=== PATIENT | male | born 1960 | race Caucasian/White ===

== ENCOUNTER 2022-02-13 00:23 | Outpatient (CLI) | payer BC, SELFPAY ==
--- NOTE | 2022-02-13 13:39 | ST.MBS_ITS ---
Date of Service Date of service: 02/13/22 Time of Service: 14:30 Modified Barium Swallow Study Findings: Videofluoroscopic Swallowing Evaluation (VFSE) / Modified Barium Swallow Study (MBSS) Speech Language Pathology Report HPI: Patient is a 61 year old male referred for VFSE/MBSS from Dr. 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 PMHx: Please see chart for full medical history. Previous Imaging: N/A SUBJECTIVE: Patient reports increased pain as RT has continued, in overall good spirits; patient reports he feels residue primarily in oral cavity after swallow onset, lacks pharyngeal sensation with presence of residue. IMPRESSIONS: Swallow safety is mildly impaired; swallow efficiency is impaired. Mild-moderate oropharyngeal dysphagia, mainly characterized by delayed pharyngeal onset timing (triggered at pyriform sinus), resulting in deep penetration prior to swallow onset during intake of mixed consistency bolus (solid pill+thin liquids); additional pharyngeal deficits as outlined below resulting in RIGHT sided vallecular residue- residue is lessened with more viscous liquid or solid bolus; recommend use of pureed texture with tablets/pills to reduce this risk during BUSINESS TEST ANALYST. Small hypertrophy noted along anterior cervical esophagus during swallow at level of C4; this does not appear to impede bolus flow. Patient appears to be at low-moderate risk for potential aspiration PNA and/or pulmonary compromise and low-moderate risk for malnutrition, low- moderate risk for dehydration. Diet modification is indicated; prophylactic non-oral nutrition is indicated only per patient preference in context of BUSINESS TEST ANALYST plan. Swallow prognosis is good-fair given age (+), likely post-radiation changes in context of L parotid ademona, BOT cancer with current radiotherapy treatment plan (-) and pending patient/caregiver training in risk management as outlined, including use of trialed compensatory strategies as outlined above. Patient appears to be a good candidate for behavioral swallow rehabilitation. Specialist referrals: N/A Ancillary tests: N/A Diet texture recommendation: IDDSI Level 6-Soft & Bite-Sized Solids 0-Thin Liquids Please see further details at www.iddsi.org Diet texture modification is per patient's preference; please adjust diet textures at patient's discretion & collaboration with care team. Risk Management: Throat clear + reswallow Head turn to Right side if unable to sense residue moving forward Oral medications (tablet/pills etc) in pureed texture as appropriate Alternate solids/liquids as able; Small sips/bites Multiple swallows per bolus to encourage clearance of pharyngeal stasis/residue Behavioral reflux precautions, including upright position during + 90 mins after meals. Control risk factors for aspiration pneumonia via (a) thorough oral hygiene & (b) maintaining physical mobility as tolerated PLAN: Therapy: Recommend subsequent outpatient session with PORTRAIT PHOTOGRAPHER to review results of today's exam and develop treatment plan as appropriate. Patient has scheduled appointment planned for 02/20 with PORTRAIT PHOTOGRAPHER at [facility]. Goal: TBD pending patient/caregiver interview Follow-up exam: N/A Thank you for allowing me to take part in this patient's care. Please feel free to contact me with any questions/concerns. Luzma Crane MA [facility]-PORTRAIT PHOTOGRAPHER Speech Language Pathologist [phone] OBJECTIVE: Videofluoroscopic Swallow Evaluation (VFSE/MBSS) was conducted in the lateral and [id number] projections by Speech-Language Pathologist, in collaboration with Radiologist, to evaluate oropharyngeal swallow function. Anatomic view under fluoroscopy: WFL PO Barium Contrast Trials Oral barium water-soluble contrast was administered as follows: IDDSI Level 0 Varibar thin liquid (40% w/v) IDDSI Level 2 Varibar nectar thick/mildly thick liquid (40% w/v) IDDSI Level 3 Varibar thin honey/liquidised/moderately-thick (40% w/v) IDDSI Level 4 Varibar pudding/pureed/extremely thick (40% w/v) IDDSI Level 7 Regular Solid: 1/2 jonas cracker coated in 3 mL Varibar pudding; 13 mm barium tablet PHYSIOLOGIC FINDINGS (1) Above: Deep penetration prior to swallow onset during mixed consistency bolus (solid pill+thin liquids) Below: RIGHT sided vallecular residue with IDDSI 2 mildly thickened liquids (residue is lessened with more viscous liquid or solid bolus) Oral Impairment 1 Lip Closure [0-No labial escape] 2 Tongue Control [1- Escape to lateral buccal cavity/floor of mouth ] 3 Bolus Preparation/Mastication [1- Slowed/prolonged chewing/mashing with complete recollection] 4 Bolus Transport/Lingual Motion [1- Delayed initiation of tongue motion] 5 Oral residue [1- Trace residue lining oral structures] Location palate, tongue 6 Initiation of pharyngeal swallow 2- Bolus head at posterior laryngeal surface of epiglottis *3- Bolus head in pyriform sinus Increased risk of penetration/aspiration prior to swallow onset with mixed consistency (ie solid tablet + thin liquids) Pharyngeal Impairment 7 Velar Elevation 0- No bolus between soft palate and pharyngeal wall 8 Laryngeal Elevation [1- Partial superior movement of thyroid cartilage with partial approximation of arytenoids to epiglottic petiole] 9 Anterior Hyoid Excursion [1- Partial anterior movement] 10 Epiglottic Movement [0- Complete inversion] 11 Laryngeal Vestibule [1- Incomplete; narrow column of air/contrast in laryngeal vestibule] Penetration occurs prior to initial swallow onset from current bolus Deep penetration prior to swallow onset during mixed consistency bolus (solid pill+thin liquids) Aspiration not observed PAS / Overall 8-Point Penetration-Aspiration Scale (2) 4 - Material enters the airway, contacts the vocal folds and is ejected from the airway Clinical Indicator(s) of Prandial/Postprandial Aspiration N/A 12 Pharyngeal Stripping Wave [1- Present; diminished] 13 Pharyngeal Contraction [0- Complete] 14 PES/UES Opening [0- Complete distension and complete duration; no obstruction of flow] 15 Tongue Base Retraction [2- Narrow column of contrast between tongue base and posterior pharyngeal wall] 16 Pharyngeal residue [2- Collection of residue within or on pharyngeal struct ures ] Location Circle Pharyngeal Residue Severity Rating Scale(3) RIGHT sided vallecular residue- residue is lessened with more viscous liquid or solid bolus [Tongue base] mild [Valleculae] [I None 0% No residue II Trace 1-5% Trace coating III Mild 5-25% Epiglottic ligament visible IV Moderate 25-50% Epiglottic ligament covered V Severe >50% Filled to epiglottic rim] [Pharyngeal wall] trace [Pyriform sinuses] [I None 0% No residue II Trace 1-5% Trace coating III Mild 5-25% Up wall to quarter full IV Moderate 25-50% Up wall to half full V Severe >50% Filled to aryepiglottic fold] l Esophageal Impairment 17 Esophageal Clearance in Upright Position [0-Complete clearance; esophageal coating ] Notes This study was performed for interpretation only of the oropharyngeal and pharyngoesoph ageal domains of swallowing, and is not intended to diagnose any other radiologic abnormalities or substitute for a formal esophagram study. Small hypertrophy noted along anterior cervical esophagus during swallow at level of C4 DIGEST Scale Rating (4) Interaction of Assigned Safety and Efficiency Grades (0=No Impairment, 1=Mild, 2=Moderate, 3=Severe, 4=Life Threatening) Safety Grade S0 S1 S2 S3 S4 Efficiency Grade E0 0 1 2 3 3 E1 1 1 2 3 3 E2 1 2 2 3 3 E3 2 2 3 3 4 E4 3 3 3 4 4 Overall Moderate Pharyngeal Impairment - Above score(s) represent swallowing events without application of compensatory techniques - Breaking of MBSimP protocol for current study likely [under, over]-grades above safety impairment IGNA: (5) Severity LEVEL 5 - Full PO: modified diet and/or independence - Mild-moderate dysphagia Trialed Compensatory Strategies & Outcome: Maneuvers Successful/Unsuccessful (+/-) Postures Successful/Unsuccessful (+/-) 3 second Preparatory Set + Chin Tuck Posture Cough Posterior Head tilt Reflexive Cued Throat Clear Head Tilt to Reflexive Left Cued Right Saliva swallow + Head Turn/Rotation to Supraglottic Swallow Left Super-supraglottic Swallow Right + Head turn to Right side - successful in reducing overall amount of pharyngeal stasis Bolus Modifications Successful/Unsuccessful (+/-) Delivery/Alternating Consistencies + Delivery/Via Straw Reduced Volume + Reduced Rate of Intake N/A Increased Viscosity + reduces amount of vallecular residue Other: Coding CPT Codes MOTION FLUOROSCOPY/SWALLOW - [id number] ([id number]) 1: Jessica Fields et al. ?MBS measurement tool for swallow impairment--MBSImp: establishing a standard.? Dysphagia vol. 23,4 (2008): 392-405. doi:10.1007/w89723-576-9824-7 2: (Henna, et al, 1995) 3: (Estefanía et al, 2015) 4: (OMary, et al, 1999, Primo, et al. Cancer. 2017;123(1):62-70) The Dynamic Imaging Grade of Swallowing Toxicity (DIGEST) Score represents a set of structured criteria primarily validated for head and neck cancer patients to grade the interaction of safety, efficiency, and overall impairment of the pharyngeal swallow, meant to assist in prioritization of targets for dysphagia treatment planning. 5: The Dysphagia Outcome and Severity Scale is a 7-point scale developed to systematically rate the functional severity of dysphagia based on objective assessment and make recommendations for diet level, independence level, and type of nutrition.
--- NOTE | 2022-02-13 14:20 | DI.RAD_ITS ---
Exam(s) RF MODIFIED SPEECH BA SWALLOW TECHNIQUE: Modified barium swallow was performed in conjunction with speech pathology. CONTRAST MATERIAL: Oral barium Oral water soluble contrast was administered. COMPARISON: No exams were available for comparison FINDINGS: Fluoroscopy was provided during swallowing mechanism study performed our department in conjunction wi the speech therapist. Please see that separate report. This study did not reveal obvious aspiration. No Zenker's diverticulum. No holdup of swallowed radi opaque pill along the course of the esophagus. IMPRESSION: No evidence of aspiration. See separate speech therapist report RADIATION DOSE DELIVERED: glenda Slater=9.94 mGy
[2022-02-13] MEDS: Barium Sulfate 81% w/w for Oral Suspension 148 GM BTL 80 GM PO (14:58)
[2022-02-13] MEDS: Barium Sulfate 40% W/V 240 ML BTL 70 ML PO (14:58)
[2022-02-13] MEDS: Barium Sulfate Oral Paste 40% W/V 230 ML TUBE 13 ML PO (14:59)
[2022-02-13] MEDS: Barium Sulfate 40% W/V 1500 CPS 250 ML BTL PO (14:59)
[2022-02-13] MEDS: Barium Sulfate 700 MG TAB PO (15:00)
== END 2022-02-13 00:43 ==
LOC: DI 00:23
PROVIDERS: PCP Physician Assistant; Visit Provider Preventive Medicine Undersea and Hyperbaric Medicine
DX: C01 Malignant neoplasm of base of tongue (principal)
CPT/HCPCS: 92526; 92611; 74221

== ENCOUNTER 2023-02-26 01:09 | Outpatient (CLI) | payer BC, SELFPAY ==
--- NOTE | 2023-02-26 14:30 | ST.MBS ---
Date of Service Date of service: 02/26/23 Time of Service: 02:30 Modified Barium Swallow Study Findings: Video fluoroscopic Swallowing Evaluation (VFSE) / Modified Barium Swallow Study (MBSS) Speech Language Pathology Report Patient referred for VFSE/MBSS from EZ Calderon ([place]ology, [facility] given oral-pharyngeal dysphagia resulting from head/neck cancer and treatment. HPI & Patient report of function: Rinku Cervantes is a? 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 He underwent TORS resection with neck dissection and submental island flap and completed chemoradiation on 03/15/2022. Recently underwent repeat biopsy with debridement of R glossopharyngeal sulcus and right base of tongue due to renewed pain and inflammation - no recurrence found but some necrotic tissue was removed and patient was also found with thrush. He was followed by Luzma Crane at [facility] for dysphagia and trismus management around and after the time of his cancer treatment. Patient was seen for follow up with [facility] head/neck and found without evidence of recurrence at that time. He complains of some difficulty managing oral secretions and with intelligibility as well as continued dysphagia symptoms, therefore new HAND MOLD MAKER referral was placed for [facility]. After initial HAND MOLD MAKER assessment, MBSS was recommended to obtain updated LOF since he is now 1 year out from completing his cancer treatment. IMPRESSIONS: Swallow safety is impaired; swallow efficiency is impaired. Moderate chronic oropharyngeal dysphagia. Characterized by: - poor lingual control resulting in premature spillage and deep penetration of liquids during the swallow, poor mastication/bolus preparation, and reduced A/P transit resulting in oral residue - with liquids also leading to post-swallow posterior spillage - reduced tongue-base retraction resulting in poor hyperpharyngeal clearance - reduced hyo-laryngeal movement inconsistently resulting in reduced or absent epiglottic inversion or reduced UES distension also resulting in vallecular and pyriform residue. Patient appears to be at low risk for potential aspiration PNA and/or pulmonary compromise and low risk for malnutrition, dehydration. Diet modification is not indicated; non-oral nutrition is not indicated. Swallow prognosis is guarded given: Positive prognostic factors: Age, Motivation, Cognitive status, Negative prognostic factors: Severity, Relative dose of Chemotherapy and/or radiation treatment, Surgical/anatomical factors, and pending patient/caregiver training in risk management as outlined, including use of trialed compensatory strategies. Patient appears to be a good candidate for behavioral swallow rehabilitation. RECOMMENDATIONS: Diet Texture Recommendation:? IDDSI LEVEL SOLIDS 6-Soft & Bite-Sized Solids 5-Minced & Moist Solids LIQUIDS 0-Thin Liquids Please see further details at?[email or web address] MEDICATIONS Whole with 0-Thin Liquids or 4-Puree Diet texture modification is per patient's preference; please adjust diet textures at patient's discretion & collaboration with care team. Do not alter medications (e.g., cut)? without advice from your MD or pharmacist. Risk Management Strategies:? Behavioral reflux precautions, including upright position during + 90 mins after meals. Small bites, approx [id number] Small sips, approx 10 mL Alternate solids/liquids as able Multiple swallows per bolus to encourage clearance of pharyngeal stasis/residue Control risk factors for aspiration pneumonia via (a) thorough oral hygiene & (b) maintaining physical mobility as tolerated PLAN: Therapy: Recommend subsequent outpatient session with HAND MOLD MAKER to review results of today's exam and develop treatment plan as appropriate. May consider the following: Oropharyngeal Exercises to target deficits noted in objective section above, Further Compensatory Strategy Training Goals: TBD pending patient/caregiver interview Follow-up exam: PRN ----- OBJECTIVE Videofluoroscopic Swallow Evaluation (VFSE/MBSS) was conducted in the lateral[ and [id number]] projection by Speech-Language Pathologist, in collaboration with Radiologist, to evaluate oropharyngeal swallow function. Anatomic view under fluoroscopy: reduced tongue bulk PO Barium Contrast Trials Oral barium water-soluble contrast was administered as follows: IDDSI Level 0 Varibar thin liquid (40% w/v) IDDSI Level 2 Varibar nectar thick/mildly thick liquid (40% w/v) IDDSI Level 4 Varibar pudding/pureed/extremely thick (40% w/v) IDDSI Level 7 Regular Solid: 1/2 jonas cracker coated in 3 mL Varibar pudding 13 mm barium tablet taken with Thin Liquids. MBSImP Component Scores: COMPONENT Scale SCORE 1 Lip closure (0-4) 0 Resulted in no labial escape 2 Hold Position (0-3) 2 Resulted in posterior escape of less than half of the bolus 3 Bolus Preparation (0-4) 1 Resulted in slow prolonged chewing/mashing with complete re-collection 4 Bolus Transport (0-4) 4 Yielded only minimal to no tongue motion 5 Oral Residue (0-4) 3 Was the majority of bolus remaining 6 Swallow Initiation (0-4) 3 Occurred when the bolus head was in the pyriform sinuses 7 Soft Palate Elevation (0-4) 0 Resulted in no bolus between soft palate and the pharyngeal wall 8 Laryngeal Elevation (0-3) 1 Was decreased with partial superior movement of thyroid cartilage/partial approximation of arytenoids to epiglottic petiole 9 Anterior Hyoid Motion (0-2) 1 Demonstrated partial anterior movement 10 Epiglottic Movement (0-2) 1 Resulted in partial inversion 11 Laryngeal Closure (0-2) 1 Was incomplete with narrow a column of air/contrast in laryngeal vestibule 12 Pharyngeal Stripping Wave (0-2) 1 Was present, but diminished 13 Pharyngeal Contraction (0-3) 1 Was incomplete, with presence of pseudodiverticulae 14 PES Opening (0-3) 0 Was completely distended and complete duration with no obstruction of flow 15 Tongue Base Retraction (0-4) 3 Allowed a wide column of contrast or air between the retracted tongue base and the posterior pharyngeal wall 16 Pharyngeal Residue (0-4) 2 Was a collection of residue within or on pharyngeal structures 17 Esophageal Clearance (0-4) NA Results: COMPONENT Scale SCORE 1 Oral Score (0-18) 13 2 Pharyngeal Score (0-29) 11 3 Esophageal Score (0-4) 0 Dysphagia Outcome and Severity Scale: COMPONENT Scale SCORE 1 LEVEL (1-7) 4 Full PO: Modified Diet and/or [place] - Mild-moderate dysphagia; Intermittent supervision/cueing and/or 1 or 2 consistencies restricted Penetration-Aspiration Scale: COMPONENT Scale SCORE 1 Thin liquid (1-8) 5 Contrast entered the airway, contacted the vocal folds, and was not ejected from the airway. 2 [place] thick (1-8) 3 Contrast entered the airway, remained above the vocal folds, and was not ejected from the airway. 3 Honey thick (1-8) NA 4 Pudding thick (1-8) 1 Contrast did not enter the airway 5 Cookie (1-8) 1 Contrast did not enter the airway DIGEST: COMPONENT Scale SCORE 1 Thin Max PAS (1-8) 5 Contrast entered the airway, contacted the vocal folds, and was not ejected from the airway. 2 [place] Max PAS (1-8) 3 Contrast entered the airway, remained above the vocal folds, and was not ejected from the airway. 3 Honey Max PAS (1-8) NA 4 Liquid Max PAS (1-8) 5 Maximum PAS Score over all liquid trials 5 Liquid Max Residue (0-3) 1 10 - 49% 6 Pudding Max PAS (1-8) 1 Contrast did not enter the airway 7 Pudding Max Residue (0-3) 1 10 - 49% 8 Cracker Max PAS (1-8) 1 Contrast did not enter the airway 9 Cracker Max Residue (0-3) 2 50 - 90% 10 Frequency if PAS >= 3 (0-3) 3 Chronic (50% or more of thin liquid trails and/or more than one consistency) 11 Amount if PAS >= 5 (0-1) 0 Not gross Results: COMPONENT Scale SCORE 1 SAFETY GRADE (0-4) 2 Safety grade for swallowing based on patterns of aspiration or laryngeal penetration 2 EFFICIENCY GRADE (0-4) 2 Efficiency grade of swallowing based on patterns of pharyngeal residue 3 DIGEST (0-4) 2 Severity grade of pharyngeal dysphagia: 0 - Normal, 1 - Mild, 2 - Moderate, 3 - Severe, 4 - Life threatening 4 Max Exam PAS (1-8) 5 Maximum PAS Score over all bolus trials 5 Max Exam Residue (0-3) 2 Maximum Exam Residue over all bolus trials Trialed Compensatory Strategies & Outcome: Maneuvers Successful (+) Unsuccessful (-) Postures Successful (+) Unsuccessful (-) 3 second Preparatory Set? ? +/- Chin Tuck Posture? ? - Cough? ? Posterior Head tilt? Reflexive? Cued? Throat Clear? ? Head Tilt to? Reflexive? Left? Cued? Right? ? Saliva swallow? ? + Head Turn/Rotate to? ? Supraglottic Swallow? Left? ? Super-supraglottic Swallow? Right? ? - Bolus Modifications Successful (+) Unsuccessful (-) Delivery/Alternating Consistencies ? Follow with Liquid Wash + for oral residue ? Follow with Solid Bolus? Delivery/Via Straw? ? Reduced Volume? ? + Reduced Rate of Intake? ? + Increased Viscosity? ? + (improved but did not eliminate) Other:?? ? Thank you for allowing us to take part in this patient's care. Please feel free to contact the [facility] Speech Language Pathology Department with any questions/concerns. Coding CPT Codes MOTION FLUOROSCOPY/SWALLOW - [id number] ([id number])
--- NOTE | 2023-02-26 15:10 | DI.RAD_ITS ---
Exam(s) RF MODIFIED SPEECH BA SWALLOW TECHNIQUE: Modified barium swallow was performed in conjunction with speech pathology. CONTRAST MATERIAL: Multiple consistencies of oral barium contrast were administered. COMPARISON: RF RF MODIFIED SPEECH BA SWALLOW from 02/13/2022 FINDINGS: Speech pathology report to follow. Fluoro time 3 minutes 33 seconds RADIATION DOSE DELIVERED: glenda Slater=12.2 mGy
[2023-02-26] MEDS: Barium Sulfate 81% w/w for Oral Suspension 148 GM BTL 90 GM PO (15:14)
[2023-02-26] MEDS: Barium Sulfate 40% W/V 240 ML BTL 70 ML PO (15:17)
[2023-02-26] MEDS: Barium Sulfate 700 MG TAB PO (15:18)
[2023-02-26] MEDS: Barium Sulfate Oral Paste 40% W/V 230 ML TUBE 13 ML PO (15:20)
== END 2023-02-26 01:29 ==
LOC: DI 01:09
PROVIDERS: PCP Physician Assistant; Visit Provider Physician Assistant
DX: R13.19 Other dysphagia (principal); C01 Malignant neoplasm of base of tongue
CPT/HCPCS: 92611; 74221